=== PATIENT | male | born 1955 ===

== ENCOUNTER 2020-01-11 15:54 | Inpatient (IN) | payer OTHER, SELFPAY ==
[~2020-01-11] VITALS: Ht 167.6 cm; Wt 54.2 kg
[2020-01-11 16:13] VITALS: Ht 167.6 cm; Wt 54.2 kg
[2020-01-11 17:06] LABS: BASOPHIL % 0.2 % (0-2)
[2020-01-11 17:07] LABS: PLATELET COUNT 426 x10^3mcL (130-400); RED CELL DISTRIBUTION WIDTH 16.2 % (11.5-14.5)
[2020-01-11 17:20] LABS: CALCIUM 8.4 mg/dL (8.5-10.1); CARBON DIOXIDE 27.5 mmol/L (21-32); CREATININE SERUM 1.3 mg/dL (0.7-1.3); POTASSIUM SERUM 4.4 mmol/L (3.5-5.1)
[2020-01-11 17:26] LABS: ALBUMIN 2.5 g/dL (3.4-5.0); BILIRUBIN TOTAL 1.08 mg/dL (0.20-1.00); C REACTIVE PROTEIN 26.1 mg/dL (<=0.9); TOTAL PROTEIN, SERUM 7.2 g/dL (6.4-8.2)
[2020-01-11] MEDS ORDERED: AMIODARONE HCL100 MG PO (17:43)
[2020-01-11] MEDS ORDERED: CARVEDILOL ER40 MG PO (17:44)
[2020-01-11] MEDS ORDERED: BUM1 PO (17:44)
[2020-01-11] MEDS ORDERED: NATURE'S BLEND F1 MG PO (17:45)
[2020-01-11] MEDS ORDERED: COLACE100 MG PO (17:45)
[2020-01-11] MEDS ORDERED: DULCOLAX10 M1 RC (17:45)
[2020-01-11] MEDS ORDERED: ATRUD HHN (17:45)
[2020-01-11] MEDS ORDERED: LANSOPRAZOLE30 M2 PO (17:46)
[2020-01-11] MEDS ORDERED: NATURE'S BLEND M3 MG PO (17:46)
[2020-01-11] MEDS ORDERED: ZOFRAN4 M3 PO (17:47)
[2020-01-11] MEDS ORDERED: THE MEDICI400 MG/5 M PO (17:47)
[2020-01-11] MEDS ORDERED: THERMOTABS PO (17:47)
[2020-01-11] MEDS ORDERED: ZANAFLEX CAPSULE4 MG PO (17:48)
[2020-01-11] MEDS ORDERED: ALD25 PO (17:48)
[2020-01-11] MEDS ORDERED: ULTRAM50 MG PO (17:48)
[2020-01-11] MEDS ORDERED: KADIAN10 M1 PO (17:49)
[2020-01-11 19:40] LABS: CHOLESTEROL/HDL RATIO 6.4
[2020-01-12 05:06] LABS: microscopic required? NO
[2020-01-12 05:34] LABS: urine erythrocyte NEGATIVE (NEGATIVE)
[2020-01-12 05:47] VITALS: BP 92/65
[2020-01-12 14:42] LABS: BASOPHIL % 0.2 % (0-2); PLATELET COUNT 338 x10^3mcL (130-400)
[2020-01-12 14:47] LABS: RED CELL DISTRIBUTION WIDTH 16.3 % (11.5-14.5)
[2020-01-12 14:53] LABS: ALBUMIN 2.4 g/dL (3.4-5.0); ALKALINE PHOSPHATASE 155 U/L (46-116); ALT/SGPT 11 U/L (16-63); AST/SGOT 14 U/L (15-37); BILIRUBIN TOTAL 0.6 mg/dL (0.20-1.00); CALCIUM 7.5 mg/dL (8.5-10.1); CARBON DIOXIDE 33.1 mmol/L (21-32); CHLORIDE SERUM 98 mmol/L (98-107); CREATININE SERUM 1.2 mg/dL (0.7-1.3); GFR1 > 60 mL/min; GLUCOSE SERUM 160 mg/dL (74-106); MAGNESIUM 1.3 mg/dL (1.8-2.4); PHOSPHOROUS 5.7 mg/dL (2.5-4.9); POTASSIUM SERUM 4.5 mmol/L (3.5-5.1); SODIUM SERUM 136 mmol/L (136-145); TOTAL PROTEIN, SERUM 7.1 g/dL (6.4-8.2)
[2020-01-12 19:07] VITALS: BP 98/58
[2020-01-12 20:35] VITALS: BP 130/80
[2020-01-12 23:13] VITALS: BP 120/86
[2020-01-13 00:35] VITALS: BP 125/78
[2020-01-13 03:52] VITALS: BP 115/63
[2020-01-13 08:30] VITALS: BP 124/76
[2020-01-13 09:30] LABS: BASOPHIL % 0.2 % (0-2); PLATELET COUNT 387 x10^3mcL (130-400)
[2020-01-13 09:31] LABS: RED CELL DISTRIBUTION WIDTH 16.6 % (11.5-14.5)
[2020-01-13 10:24] LABS: CALCIUM 7.8 mg/dL (8.5-10.1); CARBON DIOXIDE 33.2 mmol/L (21-32); CREATININE SERUM 1.3 mg/dL (0.7-1.3); PHOSPHOROUS 4.8 mg/dL (2.5-4.9); POTASSIUM SERUM 4.3 mmol/L (3.5-5.1)
[2020-01-13 10:26] LABS: C REACTIVE PROTEIN 15.6 mg/dL (<=0.9)
[2020-01-13 11:48] VITALS: BP 125/86
[2020-01-13 15:28] VITALS: BP 141/93
[2020-01-13 20:15] VITALS: BP 137/82
[2020-01-14] VITALS (18 sets, daily range): BP systolic 102–170; BP diastolic 75–110
[2020-01-14 06:14] LABS: BASOPHIL % 0.3 % (0-2)
[2020-01-14 06:59] LABS: BILIRUBIN TOTAL 0.6 mg/dL (0.20-1.00); CALCIUM 8.7 mg/dL (8.5-10.1); CARBON DIOXIDE 33.1 mmol/L (21-32); CREATININE SERUM 1.4 mg/dL (0.7-1.3); MAGNESIUM 2.5 mg/dL (1.8-2.4); PHOSPHOROUS 3.6 mg/dL (2.5-4.9); POTASSIUM SERUM 4.6 mmol/L (3.5-5.1); TOTAL PROTEIN, SERUM 7.9 g/dL (6.4-8.2)
[2020-01-14 07:01] LABS: ALBUMIN 2.8 g/dL (3.4-5.0)
[2020-01-14 07:09] LABS: PLATELET COUNT 471 x10^3mcL (130-400); RED CELL DISTRIBUTION WIDTH 16.6 % (11.5-14.5)
[2020-01-15] VITALS (13 sets, daily range): BP systolic 98–150; BP diastolic 71–90
[2020-01-15 05:44] LABS: BASOPHIL % 0.1 % (0-2); PLATELET COUNT 323 x10^3mcL (130-400)
[2020-01-15 05:47] LABS: RED CELL DISTRIBUTION WIDTH 16.1 % (11.5-14.5)
[2020-01-15 06:57] LABS: BILIRUBIN TOTAL 0.45 mg/dL (0.20-1.00); CALCIUM 8.2 mg/dL (8.5-10.1); CARBON DIOXIDE 32.6 mmol/L (21-32); CREATININE SERUM 1.7 mg/dL (0.7-1.3); POTASSIUM SERUM 4.1 mmol/L (3.5-5.1); TOTAL PROTEIN, SERUM 6.5 g/dL (6.4-8.2)
[2020-01-15 07:00] LABS: ALBUMIN 2.4 g/dL (3.4-5.0)
[2020-01-16] VITALS (15 sets, daily range): BP systolic 115–139; BP diastolic 68–87
[2020-01-16 06:13] LABS: BASOPHIL % 0.1 % (0-2); PLATELET COUNT 333 x10^3mcL (130-400)
[2020-01-16 06:53] LABS: CALCIUM 7.9 mg/dL (8.5-10.1); CARBON DIOXIDE 34.9 mmol/L (21-32); CREATININE SERUM 1.8 mg/dL (0.7-1.3); MAGNESIUM 2.5 mg/dL (1.8-2.4); PHOSPHOROUS 6.2 mg/dL (2.5-4.9)
[2020-01-16 07:07] LABS: RED CELL DISTRIBUTION WIDTH 17.2 % (11.5-14.5)
[2020-01-17] VITALS (14 sets, daily range): BP systolic 92–167; BP diastolic 43–90
[2020-01-17 06:44] LABS: BASOPHIL % 0.3 % (0-2); PLATELET COUNT 227 x10^3mcL (130-400)
[2020-01-17 06:59] LABS: CALCIUM 8.3 mg/dL (8.5-10.1); CARBON DIOXIDE 32.3 mmol/L (21-32); CREATININE SERUM 1.5 mg/dL (0.7-1.3); MAGNESIUM 2.2 mg/dL (1.8-2.4); PHOSPHOROUS 1.8 mg/dL (2.5-4.9); POTASSIUM SERUM 4.3 mmol/L (3.5-5.1)
[2020-01-18] VITALS (8 sets, daily range): BP systolic 112–173; BP diastolic 61–92
[2020-01-18 06:09] LABS: CALCIUM 8.3 mg/dL (8.5-10.1); CARBON DIOXIDE 31.6 mmol/L (21-32); CHLORIDE SERUM 107 mmol/L (98-107); CREATININE SERUM 1.2 mg/dL (0.7-1.3); GFR1 > 60 mL/min; GLUCOSE SERUM 159 mg/dL (74-106); MAGNESIUM 2.3 mg/dL (1.8-2.4); PHOSPHOROUS 2.9 mg/dL (2.5-4.9); POTASSIUM SERUM 4.2 mmol/L (3.5-5.1); SODIUM SERUM 145 mmol/L (136-145)
[2020-01-18 06:20] LABS: BASOPHIL % 0 % (0-2); PLATELET COUNT 260 x10^3mcL (130-400); RED CELL DISTRIBUTION WIDTH 16.6 % (11.5-14.5)
[2020-01-19 03:21] VITALS: BP 181/97
[2020-01-19 06:14] LABS: CALCIUM 8.5 mg/dL (8.5-10.1); CARBON DIOXIDE 33.5 mmol/L (21-32); CHLORIDE SERUM 107 mmol/L (98-107); CREATININE SERUM 1.1 mg/dL (0.7-1.3); GFR1 > 60 mL/min; GLUCOSE SERUM 146 mg/dL (74-106); MAGNESIUM 2.3 mg/dL (1.8-2.4); PHOSPHOROUS 3.3 mg/dL (2.5-4.9); POTASSIUM SERUM 4.3 mmol/L (3.5-5.1); SODIUM SERUM 144 mmol/L (136-145)
[2020-01-19 06:20] LABS: BASOPHIL % 0.1 % (0-2); PLATELET COUNT 297 x10^3mcL (130-400); RED CELL DISTRIBUTION WIDTH 16.7 % (11.5-14.5)
[2020-01-19 08:00] VITALS: BP 163/86
[2020-01-19 12:21] VITALS: BP 146/97
[2020-01-19 17:22] VITALS: BP 145/75
[2020-01-19 19:20] VITALS: BP 156/75
[2020-01-20 00:30] VITALS: BP 121/65
[2020-01-20 03:07] VITALS: BP 137/68
[2020-01-20 05:53] LABS: PLATELET COUNT 270 x10^3mcL (130-400)
[2020-01-20 05:59] LABS: BASOPHIL % 0 % (0-2)
[2020-01-20 06:06] LABS: CALCIUM 8.1 mg/dL (8.5-10.1); CARBON DIOXIDE 33.1 mmol/L (21-32); CHLORIDE SERUM 106 mmol/L (98-107); CREATININE SERUM 0.9 mg/dL (0.7-1.3); GFR1 > 60 mL/min; GLUCOSE SERUM 94 mg/dL (74-106); MAGNESIUM 1.9 mg/dL (1.8-2.4); PHOSPHOROUS 2.1 mg/dL (2.5-4.9); POTASSIUM SERUM 4.2 mmol/L (3.5-5.1); SODIUM SERUM 139 mmol/L (136-145)
[2020-01-20 07:30] VITALS: BP 139/71
[2020-01-20 12:00] VITALS: BP 116/70
[2020-01-20 17:04] VITALS: BP 151/87
[2020-01-20 21:32] VITALS: BP 147/72
[2020-01-21 06:04] VITALS: BP 142/73
[2020-01-21 08:57] VITALS: BP 141/77
[2020-01-21 12:03] VITALS: BP 114/57
[2020-01-21 17:30] VITALS: BP 134/73
[2020-01-21 21:42] VITALS: BP 150/79
[2020-01-22 05:23] VITALS: BP 142/73
[2020-01-22 09:02] VITALS: BP 138/79
[2020-01-22 13:06] VITALS: BP 124/73
[2020-01-22 17:45] VITALS: BP 164/81
[2020-01-22 21:10] VITALS: BP 167/79
[2020-01-22 23:07] VITALS: BP 140/76
[2020-01-23 06:00] VITALS: BP 140/75
[2020-01-23 08:22] VITALS: BP 137/77
[2020-01-23 12:17] VITALS: BP 138/78
[2020-01-23 16:47] VITALS: BP 137/70
[2020-01-23 16:49] VITALS: BP 97/44
[2020-01-23 20:52] VITALS: BP 173/94
[2020-01-24] VITALS: BP 137/70
[2020-01-24 05:14] VITALS: BP 111/58
[2020-01-24 09:00] VITALS: BP 136/57
[2020-01-24 12:20] VITALS: BP 115/57
[2020-01-24 17:12] VITALS: BP 104/64
[2020-01-24 20:38] VITALS: BP 136/77
[2020-01-25 09:25] VITALS: BP 135/48
[2020-01-25 12:30] VITALS: BP 93/51
[2020-01-25 16:05] VITALS: BP 130/73
[2020-01-25 17:58] VITALS: BP 130/73
[2020-01-25] MEDS ORDERED: PROT40I PO (18:01)
== END 2020-01-25 18:40 | DRG 720 ==
LOC: ED 15:54 → IC 17:29 → DU 01-20 14:20
PROVIDERS: Internal Medicine; Internal Medicine Nephrology; Specialist; ADMIT Family Medicine; ATTEND Family Medicine
PROC: 02HV33Z Insertion of Infusion Device into Superior Vena Cava, Percutaneous Approach (ICD-10-PCS; principal; 2020-01-14)
PROC: 5A1945Z Respiratory Ventilation, 24-96 Consecutive Hours (ICD-10-PCS; 2020-01-14)
PROC: 0BH17EZ Insertion of Endotracheal Airway into Trachea, Via Natural or Artificial Opening (ICD-10-PCS; 2020-01-14)
DX: A41.9 Sepsis, unspecified organism (principal); J96.21 Acute and chronic respiratory failure with hypoxia; N17.0 Acute kidney failure with tubular necrosis; E43 Unspecified severe protein-calorie malnutrition; J18.0 Bronchopneumonia, unspecified organism; J12.89 Other viral pneumonia; J43.9 Emphysema, unspecified; E87.8 Other disorders of electrolyte and fluid balance, not elsewhere classified; I11.0 Hypertensive heart disease with heart failure; I50.9 Heart failure, unspecified; D64.9 Anemia, unspecified; S20.219A Contusion of unspecified front wall of thorax, initial encounter; E87.1 Hypo-osmolality and hyponatremia; E86.0 Dehydration; F41.9 Anxiety disorder, unspecified; D72.829 Elevated white blood cell count, unspecified; X58.XXXA Exposure to other specified factors, initial encounter; K21.9 Gastro-esophageal reflux disease without esophagitis; J96.22 Acute and chronic respiratory failure with hypercapnia; Z88.0 Allergy status to penicillin; Y93.89 Activity, other specified; Y92.89 Other specified places as the place of occurrence of the external cause; Y99.8 Other external cause status; Z79.899 Other long term (current) drug therapy
CPT/HCPCS: 31500; 36556; 36600; 82962; 83880; 85378; 87046; 87046-59; 87804; 97110-GP; 97530-GP; A4628; C9113; G0378; J0360; J0456; J0692; J0696; J1650; J2250; J2704; J2920; J3010; J3370; J3475; J3490; J3535; J7030; J7050; J7644; Q0092; Q9967; U0003-CS